=== PATIENT | female | born 1970 | race African-American/Black ===

== ENCOUNTER 2018-07-25 23:58 | Emergency (ER) | payer SELFPAY ==
[~2018-07-25] VITALS: Ht 175.3 cm; Wt 83.0 kg
[~2018-07-25 23:58] MED LIST: AUGMENTIN875TAB PO; BENADRYL25 MG PO; CIPROFLOXACN500 MG PO; DIFLUCAN150 MG PO; FERROUS SULF325 M1 PO; FLAGYL500 MG PO; KEFLEX500 MG PO; MEDDOSEPAK PO; TORADOL PO; ULTRAM50 M1 PO
[2018-07-26 00:22] LABS: HEMATOCRIT 38.6 % (37.0-47.0); HEMOGLOBIN 12.6 g/dl (12.0-16.0); IMMATURE GRANULOCYTES 0.3 % (0.0-5.0); MEAN CELL VOLUME 84.6 fL CALC (80.0-100.0); MEAN CORPUSCULAR HGB 27.6 pG CALC (26.0-32.0); MEAN CORPUSCULAR HGB CONC 32.6 g/L CALC (32.0-36.0); NEUT# 2.69 thou/uL (2.00-7.15); RED BLOOD COUNT 4.56 mill/uL (4.20-5.60); RED CELL DISTRI WIDTH 15.9 % (11.5-15.5)
[2018-07-26 00:50] LABS: ALBUMIN 4.4 g/dL (3.2-5.0); ALKALINE PHOSPHATASE 82 u/l (38-126); ANION GAP 11 (6-22 (CALC)); BILIRUBIN, TOTAL 0.4 mg/dL (0.0-1.4); BUN 14 mg/dL (7-17); BUN/CREATININE RATIO 13 (12-20 (CALC)); CARBON DIOXIDE 29 mmol/l (22-30); CHLORIDE 105 mmol/l (95-108); CREATININE 1.2 mg/dL (0.5-1.0); GFR 48 ML/MIN (>=60 (CALC)); GFR FOR AFR.AMER. 58 ML/MIN (>=60 (CALC)); INTERNATIONAL NORMALIZED RATIO 0.9 RATIO (0.7-1.3); POTASSIUM 3.5 mmol/l (3.5-5.1); PROTHROMBIN TIME 9.9 SECONDS (9.0-12.5); SODIUM 143 mmol/l (137-146); TOTAL PROTEIN 7.5 g/dL (6.3-8.2)
[2018-07-26 00:57] LABS: SGOT/AST 38 u/l (14-36)
[2018-07-26 01:02] LABS: MYOGLOBIN 139 ng/mL (0 - 62)
[2018-07-26] MEDS ORDERED: AMOXICILLIN500 MG PO ×2 (02:25→02:30)
[2018-07-26] MEDS ORDERED: VENTOLIN HF1 IN (02:25)
[2018-07-26] MEDS ORDERED: DIFLUCAN100 M1 PO ×2 (02:25→02:30)
[2018-07-26] MEDS ORDERED: CODEINE/GUAIFEN1 SOL PO (02:26)
[2018-07-26 02:42] VITALS: BP 178/75
== END 2018-07-26 02:42 | disposition home or self-care (01) | DRG 203 ==
LOC: ED 23:58
PROVIDERS: Emergency Medicine
DX: J40 Bronchitis, not specified as acute or chronic (principal); F17.200 Nicotine dependence, unspecified, uncomplicated

== ENCOUNTER 2019-01-31 17:48 | Emergency (ER) | payer SELFPAY ==
[~2019-01-31] VITALS: Ht 175.3 cm; Wt 81.8 kg
[~2019-01-31 17:48] MED LIST changes: +AMOXICILLIN500 MG PO; +CODEINE/GUAIFEN1 SOL PO; +DIFLUCAN100 M1 PO; +VENTOLIN HF1 IN
[2019-01-31] MEDS ORDERED: ZITHROMAX500 MG PO (20:55)
[2019-01-31] MEDS ORDERED: MEDDOSEPAK PO (20:55)
[2019-01-31] MEDS ORDERED: TESSALON PERLE100 MG PO (20:55)
[2019-01-31] MEDS ORDERED: VENTOLIN HFA IN (20:55)
[2019-01-31] MEDS ORDERED: DIFLUCAN100 M1 PO (21:12)
[2019-01-31 21:15] VITALS: BP 141/78
== END 2019-01-31 21:15 | disposition home or self-care (01) | DRG 918 ==
LOC: ED 17:48
DX: T54.91XA Toxic effect of unspecified corrosive substance, accidental (unintentional), initial encounter (principal); T65.891A Toxic effect of other specified substances, accidental (unintentional), initial encounter; R05 Cough; R06.2 Wheezing; F17.210 Nicotine dependence, cigarettes, uncomplicated

== ENCOUNTER 2019-04-02 12:42 | Emergency (ER) | payer SELFPAY ==
[~2019-04-02] VITALS: Ht 175.3 cm; Wt 79.0 kg
[~2019-04-02 12:42] MED LIST changes: +TESSALON PERLE100 MG PO; +VENTOLIN HFA IN; +ZITHROMAX500 MG PO
[2019-04-02 13:34] LABS: HEMATOCRIT 40.5 % (37.0-47.0); HEMOGLOBIN 13.1 g/dl (12.0-16.0); IMMATURE GRANULOCYTES 0.3 % (0.0-5.0); MEAN CELL VOLUME 84.2 fL CALC (80.0-100.0); MEAN CORPUSCULAR HGB 27.2 pG CALC (26.0-32.0); MEAN CORPUSCULAR HGB CONC 32.3 g/L CALC (32.0-36.0); NEUT# 5.76 thou/uL (2.00-7.15); RED BLOOD COUNT 4.81 mill/uL (4.20-5.60); RED CELL DISTRI WIDTH 16.2 % (11.5-15.5)
[2019-04-02 13:54] LABS: ALBUMIN 4.9 g/dL (3.2-5.0); ALKALINE PHOSPHATASE 97 u/l (38-126); AMYLASE 57 u/l (30-110); ANION GAP 13 (6-22 (CALC)); BILIRUBIN, TOTAL 0.5 mg/dL (0.0-1.4); BUN 11 mg/dL (7-17); BUN/CREATININE RATIO 12 (12-20 (CALC)); CARBON DIOXIDE 26 mmol/l (22-30); CHLORIDE 105 mmol/l (95-108); CREATININE 0.9 mg/dL (0.5-1.0); GFR > 60 ML/MIN (>=60 (CALC)); GFR FOR AFR.AMER. > 60 ML/MIN (>=60 (CALC)); LIPASE 109 u/l (23-300); POTASSIUM 3.8 mmol/l (3.5-5.1); SGOT/AST 30 u/l (14-36); SODIUM 140 mmol/l (137-146); TOTAL PROTEIN 7.9 g/dL (6.3-8.2)
[2019-04-02 15:09] LABS: URINE BILIRUBIN - DIPSTICK NEGATIVE (NEGATIVE); URINE BLOOD DIPSTICK NEGATIVE (NEGATIVE); URINE COLOR YELLOW; URINE GLUCOSE - DIPSTICK NEGATIVE (NEGATIVE); URINE KETONE NEGATIVE (NEGATIVE); URINE LEUK ESTERASE NEGATIVE (NEGATIVE); URINE NITRITE - DIPSTICK NEGATIVE (Negative); URINE PH 7.5 (4.5-8.0); URINE PROTEIN - DIPSTICK NEGATIVE (NEG-TRACE); URINE UROBILINOGEN - DIPSTICK 0.2 E.U./dL (0.2)
[2019-04-02 15:20] LABS: BARBITURATES NEGATIVE (NEGATIVE); COCAINE NEGATIVE (NEGATIVE); METHADONE NEGATIVE (NEGATIVE); OXCYCODONE NEGATIVE (NEGATIVE); TETRAHYDROCANNABIONOL POSITIVE (NEGATIVE); TRICYLIC ANTIDEPRESSANTS NEGATIVE (NEGATIVE)
[2019-04-02] MEDS ORDERED: ULTRAM50 M1 PO (15:36)
[2019-04-02] MEDS ORDERED: ONDANSETRON4 MG PO (15:36)
== END 2019-04-02 16:03 | disposition home or self-care (01) | DRG 866 ==
LOC: ED 12:42
PROVIDERS: Emergency Medicine
DX: B34.9 Viral infection, unspecified (principal); F17.210 Nicotine dependence, cigarettes, uncomplicated

== ENCOUNTER 2020-05-02 14:15 | Emergency (ER) | payer MEDICAID ==
[~2020-05-02] VITALS: Ht 175.3 cm; Wt 81.8 kg
[~2020-05-02 14:15] MED LIST changes: +ONDANSETRON4 MG PO
[2020-05-02] MEDS ORDERED: ZITHROMAX Z-PA250 MG (14:57)
[2020-05-02 15:05] LABS: HEMATOCRIT 40.4 % (37.0-47.0); HEMOGLOBIN 12.8 g/dl (12.0-16.0); IMMATURE GRANULOCYTES 0.1 % (0.0-5.0); MEAN CORPUSCULAR HGB 26.6 pG CALC (26.0-32.0); MEAN CORPUSCULAR HGB CONC 31.7 g/dL CAL (32.0-36.0); NEUT# 2.9 thou/uL (2.00-7.15); RED BLOOD COUNT 4.81 mill/uL (4.20-5.60); RED CELL DISTRI WIDTH 15.7 % (11.5-15.5)
[2020-05-02 15:28] LABS: ALBUMIN 4.4 g/dL (3.2-5.0); ALKALINE PHOSPHATASE 83 u/l (38-126); ANION GAP 10 (6-22 (CALC)); BILIRUBIN, TOTAL 0.3 mg/dL (0.0-1.4); BUN 11 mg/dL (7-17); BUN/CREATININE RATIO 9 (12-20 (CALC)); CARBON DIOXIDE 29 mmol/l (22-30); CHLORIDE 107 mmol/l (95-108); CREATININE 1.2 mg/dL (0.5-1.0); GFR 47 ML/MIN (>=60 (CALC)); GFR FOR AFR.AMER. 57 ML/MIN (>=60 (CALC)); POTASSIUM 4.1 mmol/l (3.5-5.1); SGOT/AST 26 u/l (14-36); SODIUM 142 mmol/l (137-146); TOTAL PROTEIN 7.4 g/dL (6.3-8.2)
[2020-05-02] MEDS ORDERED: PREDNISONE50 MG PO (16:50)
[2020-05-02] MEDS ORDERED: ZPAK PO (16:50)
[2020-05-02] MEDS ORDERED: PROAIR HFA108 MCG/AC PO (17:00)
[2020-05-02 17:12] VITALS: BP 174/83
== END 2020-05-02 17:16 | disposition home or self-care (01) ==
LOC: ED 14:15
PROVIDERS: Family Medicine
DX: J44.9 Chronic obstructive pulmonary disease, unspecified (principal); F17.210 Nicotine dependence, cigarettes, uncomplicated; Z20.828 Contact with and (suspected) exposure to other viral communicable diseases

== ENCOUNTER 2020-11-13 21:15 | Emergency (ER) | payer MEDICAID ==
[~2020-11-13] VITALS: Ht 167.6 cm; Wt 86.3 kg
[~2020-11-13 21:15] MED LIST changes: +ALEVE220 M2 PO; +ELDERBERRY PO; +PREDNISONE50 MG PO; +PROAIR HFA108 MCG/AC PO; +ZITHROMAX Z-PA250 MG; +ZPAK PO
[2020-11-13 22:04] LABS: HEMATOCRIT 35.2 % (37.0-47.0); IMMATURE GRANULOCYTES 0.2 % (0.0-5.0); MEAN CORPUSCULAR HGB 26.6 pG CALC (26.0-32.0); MEAN CORPUSCULAR HGB CONC 31.3 g/dL CAL (32.0-36.0); NEUT# 2.81 thou/uL (2.00-7.15); RED BLOOD COUNT 4.14 mill/uL (4.20-5.60); RED CELL DISTRI WIDTH 16.5 % (11.5-15.5)
[2020-11-13 22:32] LABS: ALBUMIN 3.8 g/dL (3.2-5.0); ALKALINE PHOSPHATASE 74 u/l (38-126); ANION GAP 8 (6-22 (CALC)); BUN 12 mg/dL (7-17); BUN/CREATININE RATIO 13 (12-20 (CALC)); CARBON DIOXIDE 26 mmol/l (22-30); CHLORIDE 107 mmol/l (95-108); GFR 58 ML/MIN (>=60 (CALC)); GFR FOR AFR.AMER. > 60 ML/MIN (>=60 (CALC)); LIPASE 125 u/l (23-300); POTASSIUM 3.5 mmol/l (3.5-5.1); SGOT/AST 29 u/l (14-36); SODIUM 138 mmol/l (137-146); TOTAL PROTEIN 6.8 g/dL (6.3-8.2)
[2020-11-13] MEDS ORDERED: ALBUTEROL SUL0.083 % IN (23:27)
[2020-11-13] MEDS ORDERED: ZPAK PO (23:27)
[2020-11-13] MEDS ORDERED: MEDDOSEPAK PO (23:27)
[2020-11-13 23:42] VITALS: BP 157/84
== END 2020-11-13 23:47 | disposition home or self-care (01) ==
LOC: ED 21:15
DX: J20.9 Acute bronchitis, unspecified (principal); J44.0 Chronic obstructive pulmonary disease with (acute) lower respiratory infection; F17.200 Nicotine dependence, unspecified, uncomplicated; T48.6X6A Underdosing of antiasthmatics, initial encounter; Z91.128 Patient's intentional underdosing of medication regimen for other reason; Z20.822 Contact with and (suspected) exposure to COVID-19

== ENCOUNTER 2021-02-18 08:54 | Emergency (ER) | payer MEDICAID ==
[~2021-02-18] VITALS: Ht 167.6 cm; Wt 90.0 kg
[~2021-02-18 08:54] MED LIST changes: +ALBUTEROL SUL0.083 % IN
[2021-02-18 09:55] VITALS: BP 167/87
== END 2021-02-18 09:55 | disposition left against medical advice (07) ==
LOC: ED 08:54
DX: U07.1 COVID-19 (principal); J20.8 Acute bronchitis due to other specified organisms; J44.0 Chronic obstructive pulmonary disease with (acute) lower respiratory infection; F17.200 Nicotine dependence, unspecified, uncomplicated; Z91.19 Patient's noncompliance with other medical treatment and regimen

== ENCOUNTER 2021-12-08 10:30 | Observation (INO) | payer BC, MEDICAID ==
[2021-12-08] VITALS (20 sets, daily range): BP systolic 143–192; BP diastolic 72–104
[~2021-12-08] VITALS: Ht 167.6 cm; Wt 82.0 kg
--- NOTE | 2021-12-08 10:42 | NUR ---
PATIENT TO ROOM FOR BEDSIDE TRIAGE.
[2021-12-08 11:03] LABS: IMMATURE GRANULOCYTES 0.1 % (0.0-5.0); MEAN CELL VOLUME 86.2 fL CALC (80.0-100.0); MEAN CORPUSCULAR HGB 26.9 pG CALC (26.0-32.0); MEAN CORPUSCULAR HGB CONC 31.2 g/dL CAL (32.0-36.0); NEUT# 5.17 thou/uL (2.00-7.15); RED BLOOD COUNT 5.13 mill/uL (4.20-5.60); RED CELL DISTRI WIDTH 15.7 % (11.5-15.5)
[2021-12-08 11:15] LABS: HEMATOCRIT 44.2 % (37.0-47.0); HEMOGLOBIN 13.8 g/dl (12.0-16.0)
[2021-12-08 11:20] LABS: ANION GAP 10 (6-22 (CALC)); BUN 12 mg/dL (7-17); BUN/CREATININE RATIO 12 (12-20 (CALC)); CARBON DIOXIDE 29 mmol/l (22-30); CHLORIDE 106 mmol/l (95-108); GFR FOR AFR.AMER. > 60 ML/MIN (>=60 (CALC)); GFR OTHER RACES 58 ML/MIN (>=60 (CALC)); POTASSIUM 3.9 mmol/l (3.5-5.1); SGOT/AST 28 u/l (14-36); SODIUM 141 mmol/l (137-146)
[2021-12-08 11:24] LABS: ALBUMIN 4.7 g/dL (3.2-5.0); ALKALINE PHOSPHATASE 113 u/l (38-126); BILIRUBIN, TOTAL 0.3 mg/dL (0.0-1.4); TOTAL PROTEIN 8.3 g/dL (6.3-8.2)
--- NOTE | 2021-12-08 14:58 | NUR ---
Report given over phone. Tech transported pt via wheelchair on tele with chart
--- NOTE | 2021-12-08 15:52 | NUR ---
PATIENT ADMITTED FROM ER TO ROOM 262 AT 1450, ADMISSION ASSESSMENT COMPLETED, ORIENTED TO ROOM AND PLAN OF CARE, BP ELEVATED ON ARRIVAL AT 192/98, NURSE RECHECKED AND NOW 153/78. RESTING QUIETLY IN BED, NO SIGNS OR SYMPTOMS OF DISTRESS NOTED OR VOICED.
--- NOTE | 2021-12-08 19:30 | NUR ---
PT RESTING IN BED, NO SIGNS OF DISTRESS NOTED, RESP EVEN AND UNLABORED. PT ALERT AND ORIENTED X3, SPO2 91-92% ON RA. PT PLACED ON 3L NC AND INCREASED TO 94%. PT STATES SHE DOES NOT USE HOME O2 BUT IS A SMOKER. LUNG SOUNDS WHEEZES BOTH ANTERIORALLY AND POSTERIORALLY. 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 SKIN INTACT. VOICES NO NEEDS OR COMPLAINTS AT THIS TIME. ASSESSMENT COMPLETED, CALL LIGHT IN REACH,CONTINUE TO MONITOR.
--- NOTE | 2021-12-08 20:53 | NUR ---
PT STATES SHE HAS NOT HAD A BM IN 4 DAYS, MOM GIVEN. PT MEDICATED PER MAR. CALL LIGHT IN REACH,CONTINUE TO MONITOR.
[2021-12-09] VITALS (7 sets, daily range): BP systolic 138–172; BP diastolic 55–78
--- NOTE | 2021-12-09 00:13 | NUR ---
PT C/O HEADACHE,MEDICATED PER MAR, NO SIGNS OF DISTRESS NOTED, RESP EVEN AND UNLABORED. CALL LIGHT IN REACH,CONTINUE TO MONITOR.
--- NOTE | 2021-12-09 05:05 | NUR ---
PT ASSISTED BACK TO THE BATHROOM, C/O HEADACHE 03/24. PT MEDICATED PER AUG, NO SIGNS OF DISTRESS NOTED, RESP EVEN AND UNLABORED. CALL LIGHT IN REACH,CONTINUE TO MONITOR.
[2021-12-09 05:19] LABS: HEMOGLOBIN 13.2 g/dl (12.0-16.0); MEAN CELL VOLUME 85.5 fL CALC (80.0-100.0); MEAN CORPUSCULAR HGB 26.9 pG CALC (26.0-32.0); MEAN CORPUSCULAR HGB CONC 31.4 g/dL CAL (32.0-36.0); RED BLOOD COUNT 4.91 mill/uL (4.20-5.60); RED CELL DISTRI WIDTH 15.7 % (11.5-15.5)
[2021-12-09 05:30] LABS: ANION GAP 12 (6-22 (CALC)); BUN 13 mg/dL (7-17); BUN/CREATININE RATIO 16 (12-20 (CALC)); CARBON DIOXIDE 25 mmol/l (22-30); CHLORIDE 108 mmol/l (95-108); CREATININE 0.8 mg/dL (0.5-1.0); GFR FOR AFR.AMER. > 60 ML/MIN (>=60 (CALC)); GFR OTHER RACES > 60 ML/MIN (>=60 (CALC)); MAGNESIUM 2.7 mg/dL (1.6-2.3); POTASSIUM 4.3 mmol/l (3.5-5.1); SODIUM 141 mmol/l (137-146)
--- NOTE | 2021-12-09 08:00 | NUR ---
GOT REPORT FROM EQUIPMENT INSTALLATION PROFESSIONAL NURSE. PATIENT ASSESSED, AOX3, PATIENT C/O NAUSEA BUT REFUSED NAUSEA MEDICATION. PATIENT IS LAYING IN BED WITH EYES CLOSED AND ARM OVER HER EYES. PATIENT ON 3L OF O2. OFFERED NAUSEA MEDICATION 1 MORE TIME AND PATIENT AGAIN REFUSED. PATIENT HAS 9AM MEDICATION AND WANT TO WAIT A BIT TO TAKE IT. CALL LIGHT AND BEDSIDE TABLE WITH IN REACH ADVISED TO CALL IF SHE NEEDED ANYTHING. PATIENT VERBALIZED UNDERSTANDING.
--- NOTE | 2021-12-09 12:00 | NUR ---
PATIENT SLEEPING; NO DISTRESS NOTED. CALL LIGHT AND BEDSIDE TABLE WITHIN REACH. FALL PRECAUTIONS IN PLACE.
[2021-12-09] MEDS ORDERED: HAIR/SKIN/NAILS1 CAP PO (12:06)
--- NOTE | 2021-12-09 18:10 | NUR ---
PATIENT RESTING IN BED. NO COMPLAINTS AT THIS TIME. CALL SETHI AND BEDSIDE TABLE WITHIN REACH. FALL PRECAUTIONS IN PLACE.
--- NOTE | 2021-12-09 19:51 | NUR ---
PATIENT RESTING IN BED ON HER LEFT SIDE. ALERT AND ORIENTED. ABLE TO MAKE NEEDS KNOWN. RECEIVED PRN TYLENOL FOR HEADACHE. NO SIGNS OF DISTRESS. ASSESSMENT COMPLETE. BED REMAINS IN LOW POSITION. CALL SETHI IN REACH.
[2021-12-10] VITALS (8 sets, daily range): BP systolic 153–175; BP diastolic 72–89
--- NOTE | 2021-12-10 00:05 | NUR ---
PATIENT RESTING IN BED ON HER LEFT SIDE. NO SIGNS OF DISTRESS NOTED. NO COMPLAINTS OF PAIN VOICED. BED REMAINS IN LOW POSITION. CALL LIGHT AND BELONGINGS WITHIN REACH.
--- NOTE | 2021-12-10 04:41 | NUR ---
PATIENT RECEIVED PRN TYLENOL PER REQUEST FOR HEADACHE.
[2021-12-10 05:36] LABS: HEMATOCRIT 40.4 % (37.0-47.0); HEMOGLOBIN 12.7 g/dl (12.0-16.0); IMMATURE GRANULOCYTES 0.1 % (0.0-5.0); MEAN CELL VOLUME 86.3 fL CALC (80.0-100.0); MEAN CORPUSCULAR HGB 27.1 pG CALC (26.0-32.0); MEAN CORPUSCULAR HGB CONC 31.4 g/dL CAL (32.0-36.0); NEUT# 5.23 thou/uL (2.00-7.15); RED BLOOD COUNT 4.68 mill/uL (4.20-5.60); RED CELL DISTRI WIDTH 15.9 % (11.5-15.5)
[2021-12-10 05:52] LABS: ALBUMIN 4.1 g/dL (3.2-5.0); ALKALINE PHOSPHATASE 94 u/l (38-126); ANION GAP 10 (6-22 (CALC)); BILIRUBIN, TOTAL 0.2 mg/dL (0.0-1.4); BUN 12 mg/dL (7-17); BUN/CREATININE RATIO 13 (12-20 (CALC)); CARBON DIOXIDE 27 mmol/l (22-30); CHLORIDE 106 mmol/l (95-108); GFR FOR AFR.AMER. > 60 ML/MIN (>=60 (CALC)); GFR OTHER RACES 58 ML/MIN (>=60 (CALC)); MAGNESIUM 2.6 mg/dL (1.6-2.3); POTASSIUM 4.1 mmol/l (3.5-5.1); SGOT/AST 23 u/l (14-36); SODIUM 138 mmol/l (137-146); TOTAL PROTEIN 6.8 g/dL (6.3-8.2)
--- NOTE | 2021-12-10 08:00 | NUR ---
GOT REPORT FROM AVIATION ELECTRICIAN NURSE. PATIENT IS AOX3. PATIENT STATES THAT THE HEADACHE IS NOT BAD AT ALL. THE COUGHING IS MUCH BETTER. PATIENT IS SITTING UP IN BED WATCHING TV. PATIENT HAS CALL LIGHT AND BEDSIDE TABLE WITH IN REACH. ADVISED TO CALL IF SHE NEEDS ANYTHING. PATIENT VERBALIZED UNDERSTANDING.
[2021-12-10] MEDS ORDERED: ZITHROMAX250 MG PO (10:07)
[2021-12-10] MEDS ORDERED: PREDNISONE10 MG PO (10:11)
--- NOTE | 2021-12-10 12:15 | NUR ---
Discharge instructions given. Patient verbalizes understanding of same. Discharged in stable condition via Wheelchair to Home with family. All belongings sent with pt.
== END 2021-12-10 12:15 | disposition home or self-care (01) | DRG 192 ==
LOC: ED 10:30 → ED-I 13:38 → ED 14:15 → MS2 14:20
PROVIDERS: Nurse Practitioner; ADMIT Hospitalist; ATTEND Hospitalist
DX: J44.1 Chronic obstructive pulmonary disease with (acute) exacerbation (principal); J20.9 Acute bronchitis, unspecified; J44.0 Chronic obstructive pulmonary disease with (acute) lower respiratory infection; G43.909 Migraine, unspecified, not intractable, without status migrainosus; F17.200 Nicotine dependence, unspecified, uncomplicated; Z20.822 Contact with and (suspected) exposure to COVID-19
CPT/HCPCS: G0378; J1650

== ENCOUNTER 2022-08-12 07:04 | Day surgery (SDC) | payer BC, MEDICAID ==
[~2022-08-12] VITALS: Ht 167.6 cm; Wt 86.2 kg
[~2022-08-12 07:04] MED LIST changes: +HAIR/SKIN/NAILS1 CAP PO; +PREDNISONE10 MG PO; +VITAMIN E400 UNIT PO; +ZITHROMAX250 MG PO
[2022-08-12 12:36] VITALS: BP 149/84
== END 2022-08-12 13:15 | disposition home or self-care (01) | DRG 464 ==
LOC: ORM 07:04
PROVIDERS: ATTEND Podiatrist Foot & Ankle Surgery
PROC: 0QBN0ZZ Excision of Right Metatarsal, Open Approach (ICD-10-PCS; principal; 2022-08-12)
PROC: 0HXMXZZ Transfer Right Foot Skin, External Approach (ICD-10-PCS; 2022-08-12)
PROC: 0L8V0ZZ Division of Right Foot Tendon, Open Approach (ICD-10-PCS; 2022-08-12)
PROC: 0SNP0ZZ Release Right Toe Phalangeal Joint, Open Approach (ICD-10-PCS; 2022-08-12)
DX: M20.41 Other hammer toe(s) (acquired), right foot (principal); L03.115 Cellulitis of right lower limb; M25.774 Osteophyte, right foot; L57.0 Actinic keratosis; F17.210 Nicotine dependence, cigarettes, uncomplicated
CPT/HCPCS: J0131; J0690

== ENCOUNTER 2024-08-12 03:06 | Emergency (ER) | payer SELFPAY ==
[~2024-08-12] VITALS: Ht 167.6 cm; Wt 79.4 kg
[~2024-08-12 03:06] MED LIST changes: +DECADRON4 MG PO; +PROAIR RES108 MCG/AC PO
[2024-08-12] MEDS ORDERED: ALBUTEROL SULFATE 2.5 MG VIAL IN ONE (03:25)
[2024-08-12] MEDS ORDERED: guaiFENesin-CODEINE 200-20 MG/10 ML UDC PO ONE (03:25)
[2024-08-12] MEDS ORDERED: methylPREDNISolone SODIUM SUCC 125 MG/2 ML SDV IM ONE (03:25)
[2024-08-12] MEDS ORDERED: IPRATROPIUM-Albuterol 0.5MG-2.5MG/3 ML NEB ONE (03:25)
[2024-08-12 03:54] LABS: EOS% 4.9 % (0-8); HEMATOCRIT 40.3 % (37.0-47.0); HEMOGLOBIN 12.9 g/dl (12.0-16.0); IMMATURE GRANULOCYTES 0.4 % (0.0-5.0); LYMPH% 50.9 % (15-41); MEAN CELL VOLUME 86.5 fL CALC (80.0-100.0); MEAN CORPUSCULAR HGB 27.7 pG CALC (26.0-32.0); MONO% 6.5 % (2-13); NEUT# 1.77 thou/uL (2.00-7.15); NEUT% 36.3 % (42-76); RED BLOOD COUNT 4.66 mill/uL (4.20-5.60); RED CELL DISTRI WIDTH 15.4 % (11.5-15.5)
[2024-08-12 04:08] LABS: ALBUMIN 4.4 g/dL (3.2-5.0); BILIRUBIN, TOTAL 0.5 mg/dL (0.02-1.3); POTASSIUM 3.8 mmol/l (3.5-5.1); TOTAL PROTEIN 7.4 g/dL (6.3-8.2)
[2024-08-12] MEDS ORDERED: VIBRAMYCIN100 M2 PO (05:30)
[2024-08-12] MEDS ORDERED: PREDNISONE50 MG PO (05:30)
[2024-08-12 05:40] VITALS: BP 167/91
== END 2024-08-12 05:42 | disposition home or self-care (01) | DRG 202 ==
LOC: ED 03:06
PROVIDERS: Family Medicine
DX: J20.9 Acute bronchitis, unspecified (principal); J44.0 Chronic obstructive pulmonary disease with (acute) lower respiratory infection; I10 Essential (primary) hypertension; F17.200 Nicotine dependence, unspecified, uncomplicated